=== PATIENT | female | born 1950 | race Caucasian/White ===

== ENCOUNTER → 2016-08-04 | Outpatient (CLI) | payer MEDICARE | LOC: HEART 5 07:51 | DX: I73.9 Peripheral vascular disease, unspecified (principal); I25.10 Atherosclerotic heart disease of native coronary artery without angina pectoris; R06.02 Shortness of breath | CPT/HCPCS: 93306 ==

== ENCOUNTER → 2016-08-26 | Outpatient (CLI) | payer MEDICARE | LOC: HEART 5 10:54 | DX: R00.1 Bradycardia, unspecified (principal) ==

== ENCOUNTER → 2020-07-10 | Outpatient (CLI) | payer MEDICARE, OTHER ==
[~2020-07-10] MED LIST: ALBUTEROL2.5 MG/3 M INH; ALENDRONATE SOD35 MG PO; AMBIEN10 MG PO; AMLODIPINE BESYL5 MG PO; ASPIRIN EC81 MG PO; ATROVENT-HFA12.9 GM INH; CARDIZEM CD180 MG PO; CLARITIN 10MG T10 MG PO; COLACE 100MG C100 MG PO; CRESTOR10 MG PO; ELIQUIS2.5 MG PO; EVISTA 60 MG TA60 MG PO; FERROUS SULFAT325 M2 PO; FLONASE 0.05% N16 GM; FLOVENT 44 MCG7.9 GM INH; FUROSEMIDE40 MG PO; HYDRALAZINE HCL50 MG PO; HYDROCODON-ACE1 EAC2 PO; HYDROCODON-ACE1 EAC6 PO; IMDUR ER TAB 3030 MG PO; IPRAT-ALBUT 0.5-3 ML NEB; LASIX20 MG PO; LEVOFLOXACIN500 MG PO; LOPRESSOR 25 MG25 MG PO; MICROZIDE12.5 MG PO; MULTAQ 400 MG400 MG PO; NEURONTIN300 MG PO; NEXIUM40 MG PO; NITROSTAT0.4 MG SL; OMEPRAZOLE20 M1 PO; POTASSIUM CHLO10 MEQ PO; PREDNISONE 5 MG5 MG PO; PRINIVIL20 MG PO; PROTONIX40 MG PO; RANEXA1000 MG PO; SOTALOL80 MG PO; SPIRIVA RESPIMAT4 GM INH; SYMBICORT 16010.2 GM INH; TYLENOL EXTRA500 MG PO; VENTOLIN HFA 66.7 GM INH
== END ==
LOC: HEART 5 06-09 09:15
DX: I20.9 Angina pectoris, unspecified (principal); R94.39 Abnormal result of other cardiovascular function study
CPT/HCPCS: 78452; A9502; J2785

== ENCOUNTER 2020-10-28 14:05 | Inpatient (IN) | payer MEDICARE ==
[~2020-10-28] VITALS: Ht 157.5 cm; Wt 91.4 kg
[~2020-10-28 14:05] MED LIST changes: -ALBUTEROL2.5 MG/3 M INH; -ALENDRONATE SOD35 MG PO; -AMLODIPINE BESYL5 MG PO; -ASPIRIN EC81 MG PO; -CLARITIN 10MG T10 MG PO; -FERROUS SULFAT325 M2 PO; -FLONASE 0.05% N16 GM; -FUROSEMIDE40 MG PO; -HYDRALAZINE HCL50 MG PO; -HYDROCODON-ACE1 EAC6 PO; -IPRAT-ALBUT 0.5-3 ML NEB; -LASIX20 MG PO; -LEVOFLOXACIN500 MG PO; -POTASSIUM CHLO10 MEQ PO; -PREDNISONE 5 MG5 MG PO; -PROTONIX40 MG PO; -SOTALOL80 MG PO; -SYMBICORT 16010.2 GM INH; -VENTOLIN HFA 66.7 GM INH
[2020-10-28 14:46] LABS: HEMOGLOBIN 8.1 gm/dl (12.3-15.3); RED BLOOD COUNT 3.33 M/UL (4.00-5.10)
[2020-10-28] MEDS ORDERED: VENTOLIN HFA 66.7 GM INH (16:58)
[2020-10-28] MEDS ORDERED: ALENDRONATE SOD35 MG PO (16:58)
[2020-10-28] MEDS ORDERED: ALBUTEROL2.5 MG/3 M INH (16:58)
[2020-10-28] MEDS ORDERED: FLONASE 0.05% N16 GM (16:59)
[2020-10-28] MEDS ORDERED: ASPIRIN EC81 MG PO (16:59)
[2020-10-28] MEDS ORDERED: SYMBICORT 16010.2 GM INH (16:59)
[2020-10-28] MEDS ORDERED: HYDRALAZINE HCL50 MG PO (16:59)
[2020-10-28] MEDS ORDERED: CLARITIN 10MG T10 MG PO (17:00)
[2020-10-28] MEDS ORDERED: LASIX20 MG PO (17:00)
[2020-10-28] MEDS ORDERED: HYDROCODON-ACE1 EAC6 PO (17:00)
[2020-10-28] MEDS ORDERED: POTASSIUM CHLO10 MEQ PO (17:01)
[2020-10-28] MEDS ORDERED: SOTALOL80 MG PO (17:02)
[2020-10-29 02:32] LABS: HEMOGLOBIN 7.7 gm/dl (12.3-15.3); RED BLOOD COUNT 3.24 M/UL (4.00-5.10)
[2020-10-29 02:36] LABS: WHITE BLOOD COUNT 3.1 K/UL (4.5-11.0)
[2020-10-30 04:30] LABS: HEMOGLOBIN 8.1 gm/dl (12.3-15.3); RED BLOOD COUNT 3.35 M/UL (4.00-5.10)
[2020-10-30 04:31] LABS: WHITE BLOOD COUNT 6.9 K/UL (4.5-11.0)
[2020-10-31 04:44] LABS: RED BLOOD COUNT 3.32 M/UL (4.00-5.10)
[2020-10-31] MEDS ORDERED: FERROUS SULFAT325 M2 PO (08:36)
[2020-10-31] MEDS ORDERED: FUROSEMIDE40 MG PO (08:36)
[2020-10-31] MEDS ORDERED: AMLODIPINE BESYL5 MG PO (08:36)
[2020-10-31] MEDS ORDERED: IPRAT-ALBUT 0.5-3 ML NEB (08:36)
[2020-10-31] MEDS ORDERED: PROTONIX40 MG PO (08:36)
[2020-10-31] MEDS ORDERED: PREDNISONE 5 MG5 MG PO (08:46)
[2020-10-31] MEDS ORDERED: LEVOFLOXACIN500 MG PO (08:52)
--- NOTE | 2020-10-31 11:09 | NUR ---
PATIENTS ROOM AIR 87%
[2020-10-31 13:14] LABS: ORGANISM ID Not indicated. (.); SPECIMEN SOURCE Urine (.); STREPTOCOCCUS PNEUMONIAE AG Negative (Negative)
== END 2020-10-31 15:39 | disposition home health service (06) | DRG 177 ==
LOC: ER1 14:05 → PROG CARE 15:59 → CDU 15:59 → PROG CARE 19:44
PROVIDERS: Emergency Medicine; Internal Medicine; ADMIT Internal Medicine
DX: J15.6 Pneumonia due to other Gram-negative bacteria (principal); J96.01 Acute respiratory failure with hypoxia; I50.33 Acute on chronic diastolic (congestive) heart failure; J44.1 Chronic obstructive pulmonary disease with (acute) exacerbation; J44.0 Chronic obstructive pulmonary disease with (acute) lower respiratory infection; N17.9 Acute kidney failure, unspecified; Z20.822 Contact with and (suspected) exposure to COVID-19; I11.0 Hypertensive heart disease with heart failure; E78.5 Hyperlipidemia, unspecified; I25.10 Atherosclerotic heart disease of native coronary artery without angina pectoris; D50.9 Iron deficiency anemia, unspecified; E66.9 Obesity, unspecified; G62.9 Polyneuropathy, unspecified; I87.8 Other specified disorders of veins; I48.0 Paroxysmal atrial fibrillation; Z88.0 Allergy status to penicillin; Z79.01 Long term (current) use of anticoagulants; Z88.2 Allergy status to sulfonamides; Z72.0 Tobacco use; Z68.36 Body mass index [BMI] 36.0-36.9, adult
CPT/HCPCS: ECHO; 36415; 36600; 51702; 71045; 71250; 80048; 80053; 80202; 82550; 82553; 82803; 83036; 83540; 83550; 83605; 83690; 83735; 83874; 83880; 84100; 84439; 84443; 84484; 85025; 85027; 85045; 85610; 85730; 86140; 86850; 86900; 86901; 87040; 87278; 87899; 93005; 93306; 93970; 94640; 94660; 94664; 94760; 96374; 96375; 97162; 97166; 97530; 99285; C9113; J0456; J0696; J1756; J1940; J2185; J2930; J3370; J7070; U0002

== ENCOUNTER → 2021-01-08 | Outpatient (CLI) | payer MEDICARE ==
[~2021-01-08] MED LIST changes: +ALBUTEROL2.5 MG/3 M INH; +ALENDRONATE SOD35 MG PO; +AMLODIPINE BESYL5 MG PO; +ASPIRIN EC81 MG PO; +CLARITIN 10MG T10 MG PO; +FERROUS SULFAT325 M2 PO; +FLONASE 0.05% N16 GM; +FUROSEMIDE40 MG PO; +HYDRALAZINE HCL50 MG PO; +HYDROCODON-ACE1 EAC6 PO; +IPRAT-ALBUT 0.5-3 ML NEB; +LASIX20 MG PO; +LEVOFLOXACIN500 MG PO; +POTASSIUM CHLO10 MEQ PO; +PREDNISONE 5 MG5 MG PO; +PROTONIX40 MG PO; +SOTALOL80 MG PO; +SYMBICORT 16010.2 GM INH; +VENTOLIN HFA 66.7 GM INH
== END ==
LOC: HEART 5 15:00
DX: I49.5 Sick sinus syndrome (principal); I45.5 Other specified heart block

== ENCOUNTER 2021-03-29 12:24 | Inpatient (IN) | payer MEDICARE, MEDICAID ==
[~2021-03-29] VITALS: Ht 157.5 cm; Wt 81.6 kg
[2021-03-29 13:03] LABS: HEMOGLOBIN 12.6 gm/dl (12.3-15.3); RED BLOOD COUNT 4.05 M/UL (4.00-5.10); WHITE BLOOD COUNT 19.7 K/UL (4.5-11.0)
[2021-03-29] MEDS ORDERED: FUROSEMIDE20 MG PO (16:26)
[2021-03-29] MEDS ORDERED: PROTONIX 40 MG40 M1 PO (16:28)
[2021-03-29] MEDS ORDERED: ISOSORBIDE MONO30 MG PO (16:30)
[2021-03-29] MEDS ORDERED: ALBUTEROL2.5 MG/3 M INH (16:31)
[2021-03-29] MEDS ORDERED: VITAMIN D3125 MCG PO (16:31)
[2021-03-29] MEDS ORDERED: DILTIAZEM ER180 M2 PO (16:32)
[2021-03-29] MEDS ORDERED: BREZTRI AEROS10.7 GM INH (16:34)
[2021-03-29] MEDS ORDERED: MULTAQ 400 MG400 MG PO (16:34)
[2021-03-29] MEDS ORDERED: DOCUSATE SODIU100 MG PO (16:35)
[2021-03-30 03:11] LABS: HEMOGLOBIN 10.7 gm/dl (12.3-15.3)
[2021-03-30 03:14] LABS: RED BLOOD COUNT 3.59 M/UL (4.00-5.10); WHITE BLOOD COUNT 11.9 K/UL (4.5-11.0)
[2021-03-30 03:58] LABS: ACINETOBACTER BAUMANNII Not Detected (Negative); CANDIDA ALBICANS Not Detected (Negative); CANDIDA KRUSEI Not Detected (Negative); CANDIDA TROPICALIS Not Detected (Negative); ENTEROCOCCUS Not Detected (Negative); ESCHERICHIA COLI Not Detected (Negative); HAEMOPHILUS INFLUENZAE Not Detected (Negative); KLEBSIELLA OXYTOCA Not Detected (Negative); KLEBSIELLA PNEUMONIAE Not Detected (Negative); KPC-CARBAPENEM-RESISTANCE GENE Not Detected (Negative); PROTEUS Not Detected (Negative); PSEUDOMONAS AERUGINOSA Not Detected (Negative); SERRATIA MARCESANS Not Detected (Negative); STAPHYLOCOCCUS Not Detected (Negative); STAPHYLOCOCCUS AUREUS Not Detected (Negative); STREP AGALACTIAE (GROUP B) Not Detected (Negative); mecA (METHICILLIN RESIST GENE Not Detected (Negative); vanA/B (VANCOMYCIN RESIST GENE Not Detected (Negative)
[2021-03-30 03:59] LABS: STREPTOCOCCUS DETECTED (Negative)
[2021-03-30 04:02] LABS: STREP PYOGENES (GROUP A) Not Detected (Negative)
--- NOTE | 2021-03-31 02:25 | NUR ---
PT COMPLAINING OF PAIN TO RIGHT SIDE CHEST/LUNG AND TYLENOL NOT HELPING. MADE DR VALLEJO AWARE AND ORDERS RECIEVED. 128 94% 28 104/72. ORDERS PLACED AND GIVEN.
--- NOTE | 2021-03-31 03:04 | NUR ---
XRAY AT BEDSIDE TO DO CHEST XRAY.
[2021-03-31 05:40] LABS: HEMOGLOBIN 10.5 gm/dl (12.3-15.3); RED BLOOD COUNT 3.49 M/UL (4.00-5.10)
[2021-03-31 05:51] LABS: WHITE BLOOD COUNT 8.3 K/UL (4.5-11.0)
--- NOTE | 2021-04-01 00:55 | NUR ---
ASSESSED PT AND NOTED SHE IS SLIGHTLY CONFUSED AND HAS CORDS ALL UNHOOKED. SEEMS DISORIENTED TO SITUATION, AND PLACE CURRENTLY. STATES, " I NEED TO GET UP TO POTTY." PT ASSISTED TO BSC TO URINATE. TOLERATED WELL. BED ALARM PLACED ON PT AND CALL LIGHT WITHIN REACH. BED IN LOW POSITION.
[2021-04-01 05:35] LABS: HEMOGLOBIN 10.3 gm/dl (12.3-15.3); RED BLOOD COUNT 3.5 M/UL (4.00-5.10); WHITE BLOOD COUNT 9.1 K/UL (4.5-11.0)
--- NOTE | 2021-04-01 06:11 | NUR ---
PT NOTED TO HAVE LABORED BREATHING AND BREATHING 32 TIMES PER MINUTE. 02 SAT 85% ON 4LNC. CALLED [facility]ASE IN RT TO PLACE PT ON HIGH FLOW OXYGEN. PT ALERT BUT LUCID. DOES OPEN EYES AND TALK TO STAFF. NO IV STEROID NOTED IN JUN. NOTIFIED DR. VALLEJO ABOUT IT. NO NEW ORDERS RECIEVED FOR STEROID.
--- NOTE | 2021-04-01 06:30 | NUR ---
DR VALLEJO AT BEDSIDE TO SEE PATIENT AT 0620AM. ORDERS GIVEN AND PLACED. 157/71 HR 60 O2 92%ON HIGH FLOW 6LNC.
[2021-04-02 03:12] LABS: HEMOGLOBIN 10.6 gm/dl (12.3-15.3); RED BLOOD COUNT 3.51 M/UL (4.00-5.10)
[2021-04-02 11:23] LABS: MONONUCLEAR CELLS 17.8 (75-100); POLYMORPHONUCLEAR % 82.2 (0-25); RBC (AUTOMATED) 58200 (0-100000); WBC (AUTOMATED) 7638 (0-500)
[2021-04-02 12:34] LABS: LDH, BODY FLUID 288 U/L; TOTAL PROTEIN, BODY FLUID 2.3 gm/dL
[2021-04-03 11:02] LABS: HEMOGLOBIN 10.3 gm/dl (12.3-15.3); RED BLOOD COUNT 3.42 M/UL (4.00-5.10); WHITE BLOOD COUNT 8.1 K/UL (4.5-11.0)
[2021-04-04 02:43] LABS: HEMOGLOBIN 10.9 gm/dl (12.3-15.3); RED BLOOD COUNT 3.61 M/UL (4.00-5.10)
[2021-04-04 03:25] LABS: BUN/CREATININE RATIO 43 (0-10)
[2021-04-05 04:32] LABS: HEMOGLOBIN 11.1 gm/dl (12.3-15.3); RED BLOOD COUNT 3.71 M/UL (4.00-5.10)
[2021-04-05 04:34] LABS: WHITE BLOOD COUNT 7.9 K/UL (4.5-11.0)
[2021-04-05 05:27] LABS: BUN/CREATININE RATIO 36 (0-10)
[2021-04-06] MEDS ORDERED: BETAPACE 80MG T80 MG PO (09:45)
[2021-04-06] MEDS ORDERED: FUROSEMIDE40 MG PO (09:45)
[2021-04-06] MEDS ORDERED: AMLODIPINE BESYL5 MG PO (09:45)
[2021-04-06] MEDS ORDERED: PREDNISONE 10 M10 MG PO (09:45)
[2021-04-06] MEDS ORDERED: AMOXICILLIN500 MG PO (09:45)
--- NOTE | 2021-04-06 09:54 | NUR ---
OXYGEN SATURATION ON ROOM AIR IS 83%
== END 2021-04-06 13:35 | disposition home or self-care (01) | DRG 871 ==
LOC: ER1 12:24 → CDU 15:35 → PROG CARE 15:35
PROVIDERS: Internal Medicine; Internal Medicine Pulmonary Disease; Physician Assistant; Physician Assistant Medical; ADMIT Internal Medicine
PROC: 5A09357 Assistance with Respiratory Ventilation, Less than 24 Consecutive Hours, Continuous Positive Airway Pressure (ICD-10-PCS; 2021-04-01)
PROC: 5A0945A Assistance with Respiratory Ventilation, 24-96 Consecutive Hours, High Flow/Velocity Cannula (ICD-10-PCS; 2021-04-01)
PROC: 0W993ZZ Drainage of Right Pleural Cavity, Percutaneous Approach (ICD-10-PCS; principal; 2021-04-03)
DX: A40.3 Sepsis due to Streptococcus pneumoniae (principal); J18.9 Pneumonia, unspecified organism; J96.21 Acute and chronic respiratory failure with hypoxia; J96.22 Acute and chronic respiratory failure with hypercapnia; J44.0 Chronic obstructive pulmonary disease with (acute) lower respiratory infection; Z20.822 Contact with and (suspected) exposure to COVID-19; J44.1 Chronic obstructive pulmonary disease with (acute) exacerbation; N17.9 Acute kidney failure, unspecified; J90 Pleural effusion, not elsewhere classified; I50.32 Chronic diastolic (congestive) heart failure; E87.1 Hypo-osmolality and hyponatremia; I48.0 Paroxysmal atrial fibrillation; G62.9 Polyneuropathy, unspecified; E78.5 Hyperlipidemia, unspecified; I11.0 Hypertensive heart disease with heart failure; F17.210 Nicotine dependence, cigarettes, uncomplicated; I25.10 Atherosclerotic heart disease of native coronary artery without angina pectoris; I49.5 Sick sinus syndrome; E66.9 Obesity, unspecified; I87.2 Venous insufficiency (chronic) (peripheral); I27.20 Pulmonary hypertension, unspecified; Z90.49 Acquired absence of other specified parts of digestive tract; Z88.0 Allergy status to penicillin; Z88.2 Allergy status to sulfonamides; Z79.82 Long term (current) use of aspirin; Z79.899 Other long term (current) drug therapy; Z79.01 Long term (current) use of anticoagulants; Z68.32 Body mass index [BMI] 32.0-32.9, adult; Z99.81 Dependence on supplemental oxygen; Z90.710 Acquired absence of both cervix and uterus
CPT/HCPCS: 36415; 36600; 71045; 71250; 80048; 80053; 80202; 82550; 82553; 82803; 82945; 83605; 83615; 83735; 83874; 83880; 83986; 84157; 84439; 84443; 84484; 85025; 85027; 85730; 87040; 87070; 87077; 87081; 87086; 87150; 87186; 87205; 89051; 93005; 94640; 94660; 94664; 94760; 94761; 96374; 96375; 97116-GP-CQ; 97162; 97530-GP-CQ; 99285; C9113; J0692; J0696; J1644; J1940; J2920; J3370; J7050; J7070; U0002

== ENCOUNTER 2021-05-12 20:03 | Emergency (ER) | payer MEDICARE ==
[~2021-05-12 20:03] MED LIST changes: +AMOXICILLIN500 MG PO; +BETAPACE 80MG T80 MG PO; +BREZTRI AEROS10.7 GM INH; +DILTIAZEM ER180 M2 PO; +DOCUSATE SODIU100 MG PO; +FUROSEMIDE20 MG PO; +ISOSORBIDE MONO30 MG PO; +PREDNISONE 10 M10 MG PO; +PROTONIX 40 MG40 M1 PO; +VITAMIN D3125 MCG PO
[2021-05-13] MEDS ORDERED: PERCOCET 5/325 T1 EA PO (01:39)
[2021-05-15] MEDS ORDERED: ATROVENT-HFA12.9 GM INH (07:58)
[2021-05-15] MEDS ORDERED: FLOVENT 110 MC7.9 GM INH (08:01)
[2021-05-15] MEDS ORDERED: FOSAMAX70 MG PO (08:02)
[2021-05-15] MEDS ORDERED: NITROSTAT 0.40.4 MG SL (08:03)
[2021-05-15] MEDS ORDERED: SPIRIVA HANDIH18 MCG INH (08:04)
[2021-05-15] MEDS ORDERED: TYLENOL EXTRA500 M1 PO (08:05)
== END 2021-05-13 01:55 | disposition home or self-care (01) ==
LOC: ER1 20:03
DX: S42.351A Displaced comminuted fracture of shaft of humerus, right arm, initial encounter for closed fracture (principal); I11.9 Hypertensive heart disease without heart failure; E78.5 Hyperlipidemia, unspecified; F17.290 Nicotine dependence, other tobacco product, uncomplicated; Z88.2 Allergy status to sulfonamides; Z88.0 Allergy status to penicillin; W19.XXXA Unspecified fall, initial encounter; Y92.009 Unspecified place in unspecified non-institutional (private) residence as the place of occurrence of the external cause
CPT/HCPCS: 29105; 71045; 73060; 73080; 99283

== ENCOUNTER → 2021-05-15 | Day surgery (SDC) | payer MEDICARE ==
[~2021-05-15] VITALS: Ht 157.5 cm; Wt 88.9 kg
[~2021-05-15] MED LIST changes: +FLOVENT 110 MC7.9 GM INH; +FOSAMAX70 MG PO; +NITROSTAT 0.40.4 MG SL; +PERCOCET 5/325 T1 EA PO; +SPIRIVA HANDIH18 MCG INH; +TYLENOL EXTRA500 M1 PO
[2021-05-15 07:57] LABS: HEMOGLOBIN 10.8 gm/dl (12.3-15.3); RED BLOOD COUNT 3.58 M/UL (4.00-5.10); WHITE BLOOD COUNT 7.5 K/UL (4.5-11.0)
== END | disposition home or self-care (01) ==
LOC: OR 07:14
PROVIDERS: Orthopaedic Surgery
PROC: 3E0T3BZ Introduction of Anesthetic Agent into Peripheral Nerves and Plexi, Percutaneous Approach (ICD-10-PCS; 2021-05-15)
PROC: 0PSF04Z Reposition Right Humeral Shaft with Internal Fixation Device, Open Approach (ICD-10-PCS; principal; 2021-05-15 09:30)
DX: S42.341A Displaced spiral fracture of shaft of humerus, right arm, initial encounter for closed fracture (principal); I11.0 Hypertensive heart disease with heart failure; I50.9 Heart failure, unspecified; K21.9 Gastro-esophageal reflux disease without esophagitis; E78.5 Hyperlipidemia, unspecified; J44.9 Chronic obstructive pulmonary disease, unspecified; M10.9 Gout, unspecified; I34.1 Nonrheumatic mitral (valve) prolapse; I48.91 Unspecified atrial fibrillation; Z20.822 Contact with and (suspected) exposure to COVID-19; Z79.01 Long term (current) use of anticoagulants; Z79.82 Long term (current) use of aspirin; Z79.899 Other long term (current) drug therapy; Z88.0 Allergy status to penicillin; Z88.2 Allergy status to sulfonamides; Z87.891 Personal history of nicotine dependence; W01.0XXA Fall on same level from slipping, tripping and stumbling without subsequent striking against object, initial encounter
CPT/HCPCS: 36415; 73060; 76000; 80048; 85027; 93005; 94664; C1713; J2250; J2704; J2710; J3010; J7120; U0002

== ENCOUNTER → 2021-06-04 | Outpatient (CLI) | payer MEDICARE | LOC: EXRD 13:21 → HEART 5 13:21 | DX: J90 Pleural effusion, not elsewhere classified (principal) | CPT/HCPCS: 71046 ==

== ENCOUNTER 2021-06-17 13:41 | Inpatient (IN) | payer MEDICARE ==
[~2021-06-17] VITALS: Ht 157.5 cm; Wt 83.5 kg
[~2021-06-17 13:41] MED LIST changes: -ELIQUIS2.5 MG PO; +ELIQUIS5 MG PO; -FOSAMAX70 MG PO; -NEURONTIN300 MG PO
[2021-06-17 14:54] LABS: HEMOGLOBIN 11.8 gm/dl (12.3-15.3); RED BLOOD COUNT 3.78 M/UL (4.00-5.10); WHITE BLOOD COUNT 6.6 K/UL (4.5-11.0)
[2021-06-18 03:47] LABS: RED BLOOD COUNT 3.18 M/UL (4.00-5.10); WHITE BLOOD COUNT 4.6 K/UL (4.5-11.0)
[2021-06-18] MEDS ORDERED: BREZTRI AEROS10.7 GM INH (08:04)
[2021-06-18] MEDS ORDERED: FUROSEMIDE20 MG PO (08:04)
[2021-06-18] MEDS ORDERED: FLONASE 0.05% N16 GM (08:05)
[2021-06-18] MEDS ORDERED: DILTIAZEM 24HR180 M1 PO (08:05)
[2021-06-18] MEDS ORDERED: ALBUTEROL2.5 MG/3 M INH (08:06)
[2021-06-18] MEDS ORDERED: HYDROCODON-ACE1 EAC6 PO (08:06)
[2021-06-18] MEDS ORDERED: PROAIR HFA8.5 GM INH (08:07)
[2021-06-18] MEDS ORDERED: ONDANSETRON HCL4 MG PO (08:07)
[2021-06-18] MEDS ORDERED: AMLODIPINE BESY10 MG PO (08:10)
[2021-06-19 07:09] LABS: HEMOGLOBIN 10.2 gm/dl (12.3-15.3); RED BLOOD COUNT 3.3 M/UL (4.00-5.10); WHITE BLOOD COUNT 3.5 K/UL (4.5-11.0)
[2021-06-19 08:08] LABS: BUN/CREATININE RATIO 23 (0-10)
[2021-06-19] MEDS ORDERED: DECADRON6 MG PO (15:41)
== END 2021-06-19 18:45 | disposition home or self-care (01) | DRG 177 ==
LOC: ER1 13:41 → CDU 17:48 → MED SURG 4 17:48
PROVIDERS: Physician Assistant; Physician Assistant Medical; ADMIT Internal Medicine Infectious Disease
PROC: XW033E5 Introduction of Remdesivir Anti-infective into Peripheral Vein, Percutaneous Approach, New Technology Group 5 (ICD-10-PCS; principal; 2021-06-17)
PROC: 3E0333Z Introduction of Anti-inflammatory into Peripheral Vein, Percutaneous Approach (ICD-10-PCS; principal; 2021-06-17)
PROC: 3E03329 Introduction of Other Anti-infective into Peripheral Vein, Percutaneous Approach (ICD-10-PCS; principal; 2021-06-17)
PROC: 8E0ZXY6 Isolation (ICD-10-PCS; 2021-06-17)
DX: U07.1 COVID-19 (principal); J12.82 Pneumonia due to coronavirus disease 2019; J96.21 Acute and chronic respiratory failure with hypoxia; I50.32 Chronic diastolic (congestive) heart failure; J44.0 Chronic obstructive pulmonary disease with (acute) lower respiratory infection; I11.0 Hypertensive heart disease with heart failure; I25.10 Atherosclerotic heart disease of native coronary artery without angina pectoris; I95.9 Hypotension, unspecified; D63.8 Anemia in other chronic diseases classified elsewhere; E78.5 Hyperlipidemia, unspecified; E11.42 Type 2 diabetes mellitus with diabetic polyneuropathy; I48.0 Paroxysmal atrial fibrillation; F17.210 Nicotine dependence, cigarettes, uncomplicated; I87.8 Other specified disorders of veins; Z79.01 Long term (current) use of anticoagulants; Z79.82 Long term (current) use of aspirin; Z90.49 Acquired absence of other specified parts of digestive tract; Z88.1 Allergy status to other antibiotic agents; Z88.0 Allergy status to penicillin; Z88.2 Allergy status to sulfonamides
CPT/HCPCS: 36415; 36600; 71045; 80048; 80053; 81001; 82550; 82553; 82803; 83605; 83690; 83735; 83874; 83880; 84484; 85025; 85027; 85652; 86140; 87040; 87086; 93005; 94640; 94664; 94760; 99285; J0248; J0696; J1100; J2405; J7030; U0002

== ENCOUNTER 2021-06-24 15:35 | Observation (INO) | payer MEDICARE ==
[~2021-06-24] VITALS: Ht 157.5 cm; Wt 80.7 kg
[~2021-06-24 15:35] MED LIST changes: +AMLODIPINE BESY10 MG PO; +DECADRON6 MG PO; +DILTIAZEM 24HR180 M1 PO; +ONDANSETRON HCL4 MG PO; +PROAIR HFA8.5 GM INH
[2021-06-24 16:41] LABS: HEMOGLOBIN 11.6 gm/dl (12.3-15.3); RED BLOOD COUNT 3.71 M/UL (4.00-5.10); WHITE BLOOD COUNT 10.6 K/UL (4.5-11.0)
[2021-06-24 17:07] LABS: BUN/CREATININE RATIO 23 (0-10)
[2021-06-25 04:16] LABS: HEMOGLOBIN 10.1 gm/dl (12.3-15.3)
[2021-06-25 04:20] LABS: RED BLOOD COUNT 3.29 M/UL (4.00-5.10); WHITE BLOOD COUNT 6.5 K/UL (4.5-11.0)
[2021-06-25 04:44] LABS: BUN/CREATININE RATIO 18 (0-10)
[2021-06-25] MEDS ORDERED: DOCUSATE SODIU100 MG PO (08:08)
[2021-06-25] MEDS ORDERED: NEURONTIN600 MG PO (09:34)
[2021-06-25] MEDS ORDERED: MULTAQ 400 MG400 MG PO (12:25)
[2021-06-25] MEDS ORDERED: CLARITIN10 MG PO (12:26)
[2021-06-25] MEDS ORDERED: VITAMIN D3125 MCG PO (12:27)
[2021-06-25] MEDS ORDERED: ISOSORBIDE MONO30 MG PO (13:07)
[2021-06-25] MEDS ORDERED: BETAPACE 80MG T80 MG PO (13:07)
== END 2021-06-25 14:38 | disposition home or self-care (01) ==
LOC: ER1 15:35 → CDU 18:56 → PROG CARE 18:56
PROVIDERS: Nurse Practitioner; ADMIT Internal Medicine
DX: I48.0 Paroxysmal atrial fibrillation (principal); Z20.822 Contact with and (suspected) exposure to COVID-19; I11.0 Hypertensive heart disease with heart failure; I50.32 Chronic diastolic (congestive) heart failure; J44.9 Chronic obstructive pulmonary disease, unspecified; I87.8 Other specified disorders of veins; E78.5 Hyperlipidemia, unspecified; Z86.16 Personal history of COVID-19; I25.10 Atherosclerotic heart disease of native coronary artery without angina pectoris; F17.210 Nicotine dependence, cigarettes, uncomplicated; G62.9 Polyneuropathy, unspecified; I27.20 Pulmonary hypertension, unspecified; I25.2 Old myocardial infarction; Z79.01 Long term (current) use of anticoagulants; Z79.82 Long term (current) use of aspirin; Z79.899 Other long term (current) drug therapy; Z88.0 Allergy status to penicillin; Z88.2 Allergy status to sulfonamides
CPT/HCPCS: 0240U; 36415; 36600; 71045; 80048; 80053; 82550; 82553; 82803; 83605; 83735; 83874; 83880; 84439; 84443; 84484; 85025; 85610; 85730; 87040; 93005; 96374; 96376; 99285; G0378

== ENCOUNTER → 2021-08-10 | Outpatient (CLI) | payer MEDICARE ==
[~2021-08-10] MED LIST changes: +CLARITIN10 MG PO; +NEURONTIN600 MG PO
== END ==
LOC: EXRD 11:32
DX: U07.1 COVID-19 (principal); J12.82 Pneumonia due to coronavirus disease 2019
CPT/HCPCS: 71046

== ENCOUNTER → 2021-09-16 | Outpatient (CLI) | payer MEDICARE | LOC: HEART 5 10:00 | DX: I48.0 Paroxysmal atrial fibrillation (principal); R00.2 Palpitations ==